=== PATIENT | female | born 1985 | race Caucasian/White ===

== ENCOUNTER 2022-11-28 17:30 | Outpatient (CLI) | payer OTHER | END 2022-11-28 17:45 | disposition home or self-care (01) | LOC: LAB.N 17:30 | PROVIDERS: ATTEND Family Medicine | DX: N97.0 Female infertility associated with anovulation (principal) | CPT/HCPCS: 36415; 84144 ==

== ENCOUNTER 2023-10-14 00:39 | Emergency (ER) | payer OTHER ==
[2023-10-14 00:57] VITALS: O2SAT 98
[2023-10-14 01:18] LABS: BILIRUBIN,URINE NEGATIVE (NEGATIVE); GLUCOSE, URINE (UA) NEGATIVE (NEGATIVE); KETONES,URINE (UA) NEGATIVE (NEGATIVE); LEUKOCYTE ESTERASE, URINE NEGATIVE (NEGATIVE); NITRITE,URINE NEGATIVE (NEGATIVE); OCCULT BLOOD,URINE LARGE (NEGATIVE); PROTEIN,URINE NEGATIVE (NEGATIVE); UROBILINOGEN,URINE 0.2 (NORMAL) E.U./dL (NORMAL)
[2023-10-14 01:20] LABS: BASOPHILS % (AUTO) 0.3 %; EOSINOPHILS # (AUTO) 0.1 10^3/uL (0.0-0.7); EOSINOPHILS % (AUTO) 1.3 %; HCT - HEMATOCRIT 39.3 % (37.0-47.0); HGB - HEMOGLOBIN 12.7 g/dL (12.0-16.0); LYMPHOCYTES # (AUTO) 2.5 10^3/uL (1.5-3.5); LYMPHOCYTES % (AUTO) 37.4 %; MEAN CORPUSCULAR HEMOGLOBIN 29.5 pg (27.0-31.0); MEAN CORPUSCULAR HGB CONC 32.3 g/dL (32.0-36.0); MEAN CORPUSCULAR VOLUME 91.2 fL (81.0-99.0); MEAN PLATELET VOLUME 10.7 fL (7.9-10.8); MONOCYTES # (AUTO) 0.6 10^3/uL (0.0-1.0); MONOCYTES % (AUTO) 9.4 %; NEUTROPHILS # (AUTO) 3.5 10^3/uL (1.5-6.6); NEUTROPHILS % (AUTO) 51.3 %; PLT - PLATELET COUNT 216 10^3/uL (130-450); RED BLOOD COUNT 4.31 10^6/uL (4.20-5.40); RED CELL DISTRIBUTION WIDTH 14.2 % (12.0-15.0); WHITE BLOOD COUNT 6.8 x10^3/uL (4.8-10.8)
[2023-10-14 01:23] LABS: CLARITY,URINE CLEAR (CLEAR)
[2023-10-14 01:37] LABS: BACTERIA,URINE Rare /HPF (None Seen); RBC,URINE 0-5 /HPF (0-5); SQUAMOUS EPITHELIAL CELL,UR FEW Squamous (<= Few); WBC,URINE 0-3 /HPF (0-5)
[2023-10-14 01:42] LABS: ALBUMIN 3.4 g/dL (3.2-5.5); ALBUMIN/GLOBULIN RATIO 1.4 (1.0-2.2); BILIRUBIN,TOTAL 0.2 mg/dL (0.2-1.0); CALCIUM 9.2 mg/dL (8.5-10.3); CREATININE 0.6 mg/dL (0.6-1.3); POTASSIUM 3.8 mmol/L (3.5-4.5); TOTAL PROTEIN 5.8 g/dL (6.4-8.9)
--- NOTE | 2023-10-14 02:24 | ED Physician Documentation ---
History of Present Illness - Stated complaint Stated Complaint: - Chief complaint Chief Complaint: Abd Pain - History obtained from History obtained from: Patient - Additonal information Additional information: The patient comes to the emergency department chief complaint of vaginal bleeding in the setting of an 11-week IVF . She states that she felt as though she needed to urinate and when she went to wipe herself, the toilet paper was saturated with dark red blood with tiny clot strands. The patient states she really did not have much leaking out onto her underwear but the next time she had to urinate, she had another deeply red bloody stain. The patient has been seeing fertility clinic off [address] and so far, the has been going well as far she can tell. She states they did an ultrasound to make sure the was implanted properly. The patient states that she has had 3 other IVF pregnancies that have all miscarried around 8 weeks so this 1 has lasted longer than the others. No other complaints at this time. No fever or chills. No nausea or vomiting. 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: Dilation and currettage, Other HEENT: Rhinoplasty - Present Medications Home Medications: Ambulatory Orders Medication Instructions Recorded Confirmed Enoxaparin [Lovenox] 40 mg SUBQ DAILY 10/14/23 10/14/23 Levothyroxine Sodium [Synthroid] 25 mcg PO 10/14/23 Levothyroxine Sodium [Synthroid] 50 mcg PO 10/14/23 Progesterone, Micronized 200 mg [place] BID 10/14/23 10/14/23 [Prometrium] estradioL [Estradiol (Twice 1 patch TOP 10/14/23 Weekly)] estradioL [Estradiol] 2 mg PO BID 10/14/23 10/14/23 - Allergies Allergies/Adverse Reactions: Allergies Allergy/AdvReac Type Severity Reaction Status Date / Time codeine Allergy Respiratory Verified 10/14/23 07:58 - Social History Does the pt smoke?: No Smoking Status: Never smoker Does the pt drink ETOH?: No Does the pt have substance abuse?: No - Immunizations Immunizations are current?: No - POLST Patient has POLST: No PD ED PE NORMAL - Vitals Vital signs reviewed: Yes - General General: Alert and oriented X 3, No acute distress, Well developed/nourished - HEENT HEENT: Atraumatic, EOMI, Moist mucous membranes - Neck Neck: Supple, no meningeal sign - Cardiac Cardiac: RRR, No murmur - Respiratory Respiratory: No respiratory distress, Clear bilaterally - Abdomen Abdomen: Soft, Non tender, Non distended - Derm Derm: Normal color, Warm and dry, No rash - Extremities Extremities: No deformity - Neuro Neuro: Other (grossly intact) - Psych Psych: Normal mood, Normal affect Results - Vitals Vitals: Oxygen O2 Source Room air - Labs Labs: Laboratory Tests 10/14/23 10/14/23 10/14/23 00:53 01:15 01:15 WBC 6.8 RBC 4.31 Hgb 12.7 Hct 39.3 MCV 91.2 MCH 29.5 MCHC 32.3 RDW 14.2 Plt Count 216 MPV 10.7 Neut # (Auto) 3.5 Lymph # (Auto) 2.5 [place] # (Auto) 0.6 Eos # (Auto) 0.1 Baso # (Auto) 0.0 Absolute Nucleated RBC 0.00 Nucleated RBC % 0.0 Sodium 137 Potassium 3.8 Chloride 108 Carbon Dioxide 24 Anion Gap 5.0 L BUN 15 Creatinine 0.6 Estimated GFR (MDRD) 112 Glucose 91 Calcium 9.2 Total Bilirubin 0.2 AST 10 ALT 9 L Alkaline Phosphatase 44 Total Protein 5.8 L Albumin 3.4 Globulin 2.4 Albumin/Globulin Ratio 1.4 Lipase 23 Beta HCG, Quant 136952.9 Urine Color YELLOW Urine Clarity CLEAR Urine pH 6.0 Ur Specific [place] 1.025 Urine Protein NEGATIVE Urine Glucose (UA) NEGATIVE Urine Ketones NEGATIVE Urine Occult Blood LARGE H Urine Nitrite NEGATIVE Urine Bilirubin NEGATIVE Urine Urobilinogen 0.2 (NORMAL) Ur Leukocyte Esterase NEGATIVE Urine RBC 0-5 Urine WBC 0-3 Ur Squamous Epith Cells FEW Squamous Urine Bacteria Rare Ur Microscopic Review INDICATED Urine Culture Comments NOT INDICATED PD Medical Decision Making - ED course Complexity details: considered differential, d/w patient ED course: I discussed with the patient that unfortunately, we do not have ultrasound available tonight. The patient already has a known intrauterine and so the possibility of ectopic is already a moot point. I did obtain laboratory studies and the patient including CBC, ER abdominal panel, beta-hCG, and urinalysis. Labs were unremarkable. Beta hCG was very high at 199,000. I did make a prolonged attempt to find heart tones with the Doppler but unfortunately was unable to do so. I discussed with the patient that we could keep her in the ER for ultrasound but that it would not happen for another roughly 6 to 7 hours, as the techs do not come until 8:00. I also offered that she could come back for reevaluation in the morning if she was still bleeding. Lastly, she could contact her OB office and they could make a plan. At this point in time, the patient would like to go home. We have discussed the need for close follow-up and the usual indications for return. Departure - Departure Disposition: Home, Self Care Clinical Impression: Threatened affecting intrauterine Condition: Stable Instructions: ED Miscarriage Poss Comments: Your laboratory studies and urinalysis look good tonight. Your hormone levels are still pending, but your OB's office can request these to be sent over from here so that they have them available to compare to prior in future levels. Unfortunately, we do not have ultrasound in-house on weekend nights and they will not be in until around 8:00 this morning. Although there is really nothing to be done about a potential loss in the first trimester, it would be the most helpful test to know what is going on with your baby, and whether your baby is still viable with a heartbeat. We were not able to find the heartbeat via our audio only Doppler, and this could be because the baby is still very tiny and has positioning that is not conducive to picking up the heartbeat, or it could mean that the fetus has ceased to be viable. Please call Dr. Cerna's office first thing in the morning to let her know what is going on. If she does not or cannot set up an ultrasound for you, you may return to the emergency department if you wish to pursue an ultrasound today. Otherwise, please make the next available appointment with Dr. Cerna for follow-up. Forms: PCP List Discharge Date/Time: 10/14/23 02:28
[2023-10-14 02:31] VITALS: BP 115/83
== END 2023-10-14 02:28 | disposition home or self-care (01) ==
LOC: ED 00:39
DX: O20.0 Threatened abortion (principal); Z3A.11 11 weeks gestation of pregnancy
CPT/HCPCS: 36415; 80053; 81001; 81003; 83690; 84702; 85025; 87086; 99284

== ENCOUNTER 2023-10-14 07:51 | Emergency (ER) | payer OTHER ==
[2023-10-14 08:05] VITALS: BP 119/71; O2SAT 97
--- NOTE | 2023-10-14 08:34 | ED Physician Documentation ---
PD HPI FEMALE - Stated complaint Stated Complaint: SPOTTING/CRAMPING - Chief complaint Chief Complaint: Abd Pain - History obtained from History obtained from: Patient - Additional information Additional information: Patient is a 38-year-old female who is approximately 11 weeks presenting for evaluation of lower abdominal cramping and vaginal bleeding starting overnight. Patient is a G4, P0. 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 Therefore she has been on Lovenox for this and the last dose was last night.She is following with Dr. Cerna at [facility] and last had an ultrasound at 9-1/2 weeks where everything looked well. Patient reports that she woke up in the middle of the night having to go to the bathroom and when she wiped she noticed a large amount of dark red blood with some clots and was having some lower abdominal cramping. She states that the bleeding has stopped but she continues to have significant cramping. She did come to the emergency department overnight for evaluation. Labs were obtained. They were unable to obtain heart tones with bedside Doppler. She was directed to either come back to the emergency department today when we have ultrasound available or to make an appointment to be seen by her surgical garment fitter. Blood type is O+. Review of Systems Constitutional: denies: Fever Cardiac: denies: Chest pain / pressure Respiratory: denies: Dyspnea GI: reports: Abdominal Pain. 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: Other : None HEENT: Chronic vision loss Psych: None Musculoskeletal: None Derm: None Other Past Medical History: PCOS - Past Surgical History Past Surgical History: Yes General: EGD /SQL SSIS DEVELOPER: Dilation and currettage, Other HEENT: Rhinoplasty - Present Medications Home Medications: Ambulatory Orders Medication Instructions Recorded Confirmed Enoxaparin [Lovenox] 40 mg SUBQ DAILY 10/14/23 10/14/23 Levothyroxine Sodium [Synthroid] 25 mcg PO 10/14/23 Levothyroxine Sodium [Synthroid] 50 mcg PO 10/14/23 Progesterone, Micronized 200 mg [place] BID 10/14/23 10/14/23 [Prometrium] estradioL [Estradiol (Twice 1 patch TOP 10/14/23 Weekly)] estradioL [Estradiol] 2 mg PO BID 10/14/23 10/14/23 - Allergies Allergies/Adverse Reactions: Allergies Allergy/AdvReac Type Severity Reaction Status Date / Time codeine Allergy Respiratory Verified 10/14/23 07:58 - Social History Does the pt smoke?: No Smoking Status: Never smoker Does the pt drink ETOH?: No Does the pt have substance abuse?: No - Immunizations Immunizations are current?: Yes - POLST Patient has POLST: No PD ED PE NORMAL - General General: Alert and oriented X 3, No acute distress, Well developed/nourished - HEENT HEENT: Atraumatic, Moist mucous membranes, Pharynx benign - Neck Neck: Supple, no meningeal sign - Cardiac Cardiac: RRR - Respiratory Respiratory: No respiratory distress, Clear bilaterally - Abdomen Abdomen: Normal bowel sounds, Soft, Non tender, Non distended - Derm Derm: Warm and dry - Neuro Neuro: Normal speech Results - Vitals Vitals: Vital Signs - 24 hr 10/14/23 07:59 Temperature 36.7 C Heart Rate 91 Respiratory 16 Rate Blood Pressure 119/71 O2 Saturation 97 Oxygen O2 Source Room air PD Medical Decision Making - ED course Complexity details: reviewed results, d/w patient ED course: Pt with 1st trimester , cramping and bleeding today. Pt seen overnight and staff unable to find FHTs. Pt back for U/S this morning. Benign exam. U/S with movement, +cardiac activity and measuring appropriately. Pt aware of need for f/u with OB. Blood type reported as O+. Departure - Departure Disposition: 01 Home, Self Care Clinical Impression: Spotting and cramping affecting , antepartum Condition: Stable Instructions: Bleeding Early Preg Follow-Up: Pricilla Cerna MD [Physician No Access] - Comments: The preliminary report I received from the compressor technician today shows that the baby is active and moving around and measuring appropriately at 11 weeks 1 day with a heart rate of 166 bpm which is good. I would recommend follow-up with your AUTOMATED PROCESS OPERATOR at [facility]. Return to the emergency department with any worsening such as heavy bleeding where you are soaking through a pad an hour for a few hours or with any concerns. Forms: PCP List Discharge Date/Time: 10/14/23 09:57
--- NOTE | 2023-10-14 10:36 | Ultrasound Report ---
PROCEDURE: OB 1st Trimester INDICATIONS: bleeding/cramping/no FHT overnight OUTSIDE/PRIOR DATING DATA: Last menstrual period (LMP): 08/14/2023. (IVF transfer date) LMP-based estimated date of delivery (SHAHIDA): 05/01/2024. First dating scan (date and location): 10/14/2023. Estimated date of delivery (SHAHIDA) from first dating scan: 05/01/2024. TECHNIQUE: Real-time scanning was performed of the fetus and maternal pelvic organs, with image documentation. COMPARISON: None. FINDINGS: Intrauterine gestational sac present. Embryo: pole is seen with crown-rump length of 4.3 cm, consistent with an estimated gestationa l age of 11 weeks 1 day. Heart rate: 166 bpm. Other: No perigestational fluid collection. Measurement variability in dating: +/- 4 weeks by LMP, +/- 7 days by mean sac diameter (use before 6 weeks gestation if crown-rump length not able to be measured), +/- 5 days by crown-rump length (6-12 weeks gestation). Maternal organs: Cervix is closed. Right ovary not visualized. Left ovary is unremarkable. IMPRESSION: Single live intrauterine and size is concordant with clinical dates. Reviewed by: Enoc Gramajo MD on 10/14/2023 10:35 AM PDT Approved by: Enoc Gramajo MD on 10/14/2023 10:35 AM PDT Station ID: [id number]
== END 2023-10-14 09:57 | disposition home or self-care (01) ==
LOC: ED 07:51
DX: O26.851 Spotting complicating pregnancy, first trimester (principal); Z3A.11 11 weeks gestation of pregnancy; O99.891 Other specified diseases and conditions complicating pregnancy; R10.30 Lower abdominal pain, unspecified; O20.0 Threatened abortion
CPT/HCPCS: 36415; 80053; 81001; 81003; 83690; 84702; 85025; 87086; 99284

== ENCOUNTER 2024-03-21 20:25 | Emergency (ER) | payer OTHER ==
--- NOTE | 2024-03-21 20:29 | ED Physician Documentation ---
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 SUPERVISOR: Dilation and currettage, Other HEENT: Rhinoplasty - Present Medications Home Medications: Ambulatory Orders Medication Instructions Recorded Confirmed Enoxaparin [Lovenox] 40 mg SUBQ DAILY 10/14/23 10/14/23 Levothyroxine Sodium [Synthroid] 25 mcg PO 10/14/23 Levothyroxine Sodium [Synthroid] 50 mcg PO 10/14/23 Progesterone, Micronized 200 mg [place] BID 10/14/23 10/14/23 [Prometrium] estradioL [Estradiol (Twice 1 patch TOP 10/14/23 Weekly)] estradioL [Estradiol] 2 mg PO BID 10/14/23 10/14/23 - Allergies Allergies/Adverse Reactions: Allergies Allergy/AdvReac Type Severity Reaction Status Date / Time codeine Allergy Respiratory Verified 03/21/24 20:33 - Social History Does the pt smoke?: No Smoking Status: Never smoker Does the pt drink ETOH?: No Does the pt have substance abuse?: No - Immunizations Immunizations are current?: Yes - POLST Patient has POLST: No Results - Vitals Vitals: Vital Signs - 24 hr 03/21/24 20:33 Temperature 36.5 C Heart Rate 62 Respiratory 24 Rate Blood Pressure 173/97 H O2 Saturation 98 Oxygen O2 Source Room air PD Medical Decision Making - ED course ED course: Note started in error. Nabeel Rodriguez
[2024-03-21 20:55] LABS: BASOPHILS % (AUTO) 0.2 %; EOSINOPHILS # (AUTO) 0.1 10^3/uL (0.0-0.7); EOSINOPHILS % (AUTO) 0.6 %; HCT - HEMATOCRIT 34.7 % (37.0-47.0); HGB - HEMOGLOBIN 11.2 g/dL (12.0-16.0); LYMPHOCYTES # (AUTO) 2.3 10^3/uL (1.5-3.5); MEAN CORPUSCULAR HEMOGLOBIN 29.1 pg (27.0-31.0); MEAN CORPUSCULAR HGB CONC 32.3 g/dL (32.0-36.0); MEAN CORPUSCULAR VOLUME 90.1 fL (81.0-99.0); MEAN PLATELET VOLUME 12.1 fL (7.9-10.8); MONOCYTES # (AUTO) 1.3 10^3/uL (0.0-1.0); MONOCYTES % (AUTO) 10.3 %; NEUTROPHILS # (AUTO) 8.4 10^3/uL (1.5-6.6); NEUTROPHILS % (AUTO) 68.5 %; NRBC ABSOLUTE COUNT (AUTO) 0.03 x10^3/uL; NUCLEATED RED BLOOD CELLS AUTO 0.2 /100WBC; PLT - PLATELET COUNT 146 10^3/uL (130-450); RED BLOOD COUNT 3.85 10^6/uL (4.20-5.40); WHITE BLOOD COUNT 12.3 x10^3/uL (4.8-10.8)
[2024-03-21] MEDS: LABETALOL 20 MG/4 ML SYRINGE IVP STA ×2 (20:56→21:47)
[2024-03-21] MEDS: ONDANSETRON 4 MG/2 ML VIAL IVP STA (21:01)
--- NOTE | 2024-03-21 21:07 | XRAY Report ---
PROCEDURE: Chest 1V INDICATIONS: CHEST PAIN, 35WKS PREG TECHNIQUE: One view of the chest was acquired. COMPARISON: None FINDINGS: Surgical changes and devices: None. Lungs and pleura: No pleural effusions or pneumothorax. Lungs are clear. Mediastinum: Mediastinal contours appear normal. Heart size is normal. Bones and chest wall: No suspicious bony lesions. Overlying soft tissues appear unremarkable. IMPRESSION: No acute cardiopulmonary findings Reviewed by: Rohan Mae MD on 03/21/2024 8:05 PM AKDT Approved by: Rohan Mae MD on 03/21/2024 8:05 PM AKDT Station ID: [id number]
[2024-03-21 21:12] LABS: ALBUMIN 3.3 g/dL (3.2-5.5); ALBUMIN/GLOBULIN RATIO 1.3 (1.0-2.2); BILIRUBIN,TOTAL 0.3 mg/dL (0.2-1.0); CALCIUM 8.9 mg/dL (8.5-10.3); CREATININE 0.6 mg/dL (0.6-1.3); POTASSIUM 4.1 mmol/L (3.5-4.5); TOTAL PROTEIN 5.8 g/dL (6.4-8.9)
--- NOTE | 2024-03-21 21:13 | ED Physician Documentation ---
PD HPI CHEST PAIN - Stated complaint Stated Complaint: CHEST PX/VOMITING - Chief complaint Chief Complaint: Cardiac - History obtained from History obtained from: Patient - Additional information Additional information: 38yo at 35wks gestational age Presents by private vehicle from home for approximately 5 to 6 hours of midepigastric/substernal chest pain. Pain is sharp, does not radiate, reports associated shortness of breath. Pain began suddenly while she was at a family event with her . Patient was just discharged from [facility] for pre eclampsia with IUGR. Patient states that she was discharged from [facility] with instructions for scheduled nonstress tests with hopes that patient could keep fetus for 3 additional weeks to reach term. Patient denies vaginal bleeding, loss of fluids, vaginal pain. Reports chronic lower extremity swelling due to her preeclampsia that is unchanged from her baseline. Normal care at [facility] with Dr. Cerna. Patient states she was in too much pain to make it to [facility] and came to [facility] instead. Review of Systems Constitutional: denies: Fever, Chills Cardiac: reports: Chest pain / pressure. denies: Palpitations, Calf pain Respiratory: reports: Dyspnea. 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 HEENT: Chronic vision loss Psych: None Musculoskeletal: None Derm: None - Past Surgical History Past Surgical History: Yes General: EGD /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 NATURAL 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: Dilation and currettage, Other HEENT: Rhinoplasty - Present Medications Home Medications: Ambulatory Orders Medication Instructions Recorded Confirmed Enoxaparin [Lovenox] 40 mg SUBQ DAILY 10/14/23 10/14/23 Levothyroxine Sodium [Synthroid] 25 mcg PO 10/14/23 Levothyroxine Sodium [Synthroid] 50 mcg PO 10/14/23 Progesterone, Micronized 200 mg [place] BID 10/14/23 10/14/23 [Prometrium] estradioL [Estradiol (Twice 1 patch TOP 10/14/23 Weekly)] estradioL [Estradiol] 2 mg PO BID 10/14/23 10/14/23 - Allergies Allergies/Adverse Reactions: Allergies Allergy/AdvReac Type Severity Reaction Status Date / Time codeine Allergy Respiratory Verified 03/21/24 20:33 - Social History Does the pt smoke?: No Smoking Status: Never smoker Does the pt drink ETOH?: No Does the pt have substance abuse?: No - Immunizations Immunizations are current?: Yes - POLST Patient has POLST: No PD ED PE NORMAL - Vitals Vital signs reviewed: Yes - General General: Alert and oriented X 3, Well developed/nourished, Other (anxious, uncomfortable) - Cardiac Cardiac: RRR, Strong equal pulses - Respiratory Respiratory: No respiratory distress, Clear bilaterally - Abdomen Abdomen: Soft, Non tender, Other (gravid consistent with gestational age) - Derm Derm: Normal color, Warm and dry, No rash - Extremities Extremities: No deformity, No tenderness to palpate, Normal ROM s pain, Other (trace pitting edema to knees) - Neuro Neuro: Alert and oriented X 3, lock and dam operator 2-12 intact, No motor deficit, Normal speech Results - Vitals Vitals: Vital Signs - 24 hr 03/21/24 03/21/24 03/21/24 20:33 21:10 21:17 Temperature 36.5 C Heart Rate 62 72 65 Respiratory 24 22 19 Rate Blood Pressure 173/97 H 160/101 H 152/95 H O2 Saturation 98 98 97 03/21/24 03/21/24 03/21/24 21:30 21:38 21:57 Temperature Heart Rate 66 74 71 Respiratory 20 24 24 Rate Blood Pressure 149/101 H 143/92 H 147/88 H O2 Saturation 99 98 97 03/21/24 03/21/24 22:30 22:43 Temperature 36.8 C Heart Rate 88 91 Respiratory 21 30 H Rate Blood Pressure 152/95 H 150/93 H O2 Saturation 97 97 Oxygen O2 Source Room air - Labs Labs: Laboratory Tests 03/21/24 03/21/24 03/21/24 20:45 20:45 21:24 WBC 12.3 H RBC 3.85 L Hgb 11.2 L Hct 34.7 L MCV 90.1 MCH 29.1 MCHC 32.3 RDW 14.0 Plt Count 146 MPV 12.1 H Neut # (Auto) 8.4 H Lymph # (Auto) 2.3 [place] # (Auto) 1.3 H Eos # (Auto) 0.1 Baso # (Auto) 0.0 Absolute Nucleated RBC 0.03 Nucleated RBC % 0.2 Sodium 138 Potassium 4.1 Chloride 105 Carbon Dioxide 25 Anion Gap 8.0 BUN 19 Creatinine 0.6 Estimated GFR (MDRD) 112 Glucose 86 Calcium 8.9 Total Bilirubin 0.3 AST 172 H ALT 103 H Alkaline Phosphatase 90 Troponin I High Sens 9.8 Total Protein 5.8 L Albumin 3.3 Globulin 2.5 Albumin/Globulin Ratio 1.3 Urine Color YELLOW Urine Clarity CLEAR Urine pH 6.0 Ur Specific [place] >=1.030 H Urine Protein 100 H Urine Glucose (UA) NEGATIVE Urine Ketones NEGATIVE Urine Occult Blood NEGATIVE Urine Nitrite NEGATIVE Urine Bilirubin NEGATIVE Urine Urobilinogen 0.2 (NORMAL) Ur Leukocyte Esterase NEGATIVE Urine RBC 0-5 Urine WBC 0-3 Ur Squamous Epith Cells MOD Squamous H Urine Bacteria Moderate H Ur Microscopic Review INDICATED Urine Culture Comments NOT INDICATED Urine Creatinine 03/21/24 21:24 WBC RBC Hgb Hct MCV MCH MCHC RDW Plt Count MPV Neut # (Auto) Lymph # (Auto) [place] # (Auto) Eos # (Auto) Baso # (Auto) Absolute Nucleated RBC Nucleated RBC % Sodium Potassium Chloride Carbon Dioxide Anion Gap BUN Creatinine Estimated GFR (MDRD) Glucose Calcium Total Bilirubin AST ALT Alkaline Phosphatase Troponin I High Sens Total Protein Albumin Globulin Albumin/Globulin Ratio Urine Color Urine Clarity Urine pH Ur Specific [place] Urine Protein Urine Glucose (UA) Urine Ketones Urine Occult Blood Urine Nitrite Urine Bilirubin Urine Urobilinogen Ur Leukocyte Esterase Urine RBC Urine WBC Ur Squamous Epith Cells Urine Bacteria Ur Microscopic Review Urine Culture Comments Urine Creatinine 83.4 PD Medical Decision Making - ED course Complexity details: reviewed old records, reviewed results, re-evaluated patient, considered differential, d/w patient ED course: Patient presenting with midepigastric chest pain and elevated blood pressures. Patient has had difficulty in managing preeclampsia and was just discharged from [facility] for preeclampsia. 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 IV labetalol ordered for blood pressures. Patient's blood pressure did improve initially with labetalol however it did began to gradually creep up. Patient does have some anxiety, stating "I cannot do this anymore". A small dose of Ativan ordered for anxiolysis. Additional labetalol ordered for blood pressure support. Laboratory work reviewed, platelets 146, AST 172, ALT 103, urine protein positive, urine creatinine 83. Records were reviewed from [facility], on patient's platelets were 166, AST 15, ALT 7, alk phos 104. Discussed case with on-call OB Dr. Paiz, who recommended transfer back to and initiation of magnesium. She stated that the patient could be monitored in the OB section while awaiting transfer. Discussed with patient and her significant other at bedside, they are amenable to transfer. 4g magnesium ordered for infusion. 2029 - Case discussed with Dr. Bradley of OBGYN at [facility] - they unfortunately are at capacity in the NICU and cannot accept a transfer. Transfer center will reach out to other campuses to see if there is space. Discussed with Dr. Paiz, unfortunately since we do not have a NICU we cannot deliver the patient and she must be transferred. We will continue to call around to facilities wiht NICU capabilities. Patient accepted by Dr. Jarvis at [facility] contacted for transport. 0000 [facility] arrived to transport patient to higher level of care - Critical Care Time(min): 46 Time Includes: Direct patient care, Review records, Reassess patient, Document care, Coordinate care, Medical consult, Family consult for tx dec, See progress note Data interpretation: Labs, Pulse ox, Prior EKG, Cardiac output Procedures included in critical care time: Peripheral IV Departure - Departure Disposition: 02 Transfer Acute Care Hosp Clinical Impression: Pre-eclampsia, severe Qualifiers: Trimester: third trimester Qualified Code(s): O14.13 - Severe pre-eclampsia, third trimester Condition: Serious
[2024-03-21 21:14] LABS: TROPONIN I HIGH SENSITIVITY 9.8 ng/L (2.3-14.8)
[2024-03-21 21:33] LABS: BILIRUBIN,URINE NEGATIVE (NEGATIVE); GLUCOSE, URINE (UA) NEGATIVE (NEGATIVE); KETONES,URINE (UA) NEGATIVE (NEGATIVE); LEUKOCYTE ESTERASE, URINE NEGATIVE (NEGATIVE); NITRITE,URINE NEGATIVE (NEGATIVE); OCCULT BLOOD,URINE NEGATIVE (NEGATIVE); PROTEIN,URINE 100 mg/dL (NEGATIVE); UROBILINOGEN,URINE 0.2 (NORMAL) E.U./dL (NORMAL)
[2024-03-21 21:34] LABS: CLARITY,URINE CLEAR (CLEAR)
[2024-03-21 21:46] LABS: BACTERIA,URINE Moderate /HPF (None Seen); RBC,URINE 0-5 /HPF (0-5); SQUAMOUS EPITHELIAL CELL,UR MOD Squamous (<= Few); WBC,URINE 0-3 /HPF (0-5)
[2024-03-21] MEDS: SODIUM CHLORIDE 0.9% 1,000 ML IV STA (21:52)
[2024-03-21] MEDS: LORazepam 2 MG/ML VIAL IVP STA (21:55)
[2024-03-21] MEDS: MAG HYDROX/AL HYDROX/SIMETH 30 ML UDC PO STA (21:57)
[2024-03-21] MEDS: LIDOCAINE VISCOUS 2% 15 ML UDC MM STA (21:58)
[2024-03-21 22:02] VITALS: O2SAT 97
[2024-03-21] MEDS ORDERED: MAGNESIUM SULFATE IN WATER 20 GM/500 ML IV.SOLN IV ONE (22:13)
[2024-03-21] MEDS: MAGNESIUM SULFATE 4 GRAM 4 GM/50 ML BAG IV ONE (22:16)
[2024-03-21 22:53] VITALS: BP 150/93
[2024-03-21] MEDS ORDERED: hydrALAZINE INJ 20 MG/ML VIAL IVP PRN ×2 (23:02)
[2024-03-21] MEDS ORDERED: NIFEdipine 10 MG CAPSULE PO PRN (23:02)
[2024-03-21] MEDS ORDERED: SODIUM CHLORIDE FLUSH 0.9% 10 ML SYRINGE IVP PRN (23:02)
[2024-03-21] MEDS ORDERED: LABETALOL 20 MG/4 ML SYRINGE IVP PRN ×3 (23:02)
[2024-03-21] MEDS: MAGNESIUM SULFATE IN WATER 20 GM/500 ML IV.SOLN IV SCH (23:10)
[2024-03-21] MEDS ORDERED: LACTATED RINGERS 1,000 ML ONE (23:44)
[2024-03-21] MEDS ORDERED: SODIUM CHLORIDE FLUSH 0.9% 10 ML SYRINGE IVP SCH (23:45)
[2024-03-21] MEDS: LABETALOL 100 MG TABLET PO ONE (23:53)
--- NOTE | 2024-03-22 00:24 | PROVIDER PROGRESS NOTE ---
- HPI Chief Complaint: Other (Transfered to L&D from the ED for monitoring/BP monitoring pending transfer to outside facility for preeclampsia with severe features) Current : Vital Signs Temperature 97.7 F 03/21/24 20:33 Heart Rate 62 03/21/24 20:33 Respiratory Rate 24 03/21/24 20:33 Blood Pressure 173/97 H 03/21/24 20:33 O2 Saturation 98 03/21/24 20:33 Temperature 98.2 F 03/21/24 22:30 Heart Rate 91 03/21/24 22:43 Respiratory Rate 30 H 03/21/24 22:43 Blood Pressure 150/93 H 03/21/24 22:43 O2 Saturation 97 03/21/24 22:43 If not protocol: Oxygen Flow, liters/minute - Plan Plan: S: Rose Marie Valenzuela is a 38 yo at 34w1d with recently diagnosed preeclampsia without severe features and FGR who presented to the ED this evening with RUQ/epigastic/chest pain and was found to have severe range BPs requiring treatment with IV labetalol 20mg x 2 as well as elevated LFTs consistent with progression to preeclampsia with severe features. She had an EKG and neg troponin in the ED. The ED physician initiated the transfer process to for further care and Corry was transferred to L&D for further monitoring and BP evaluation pending transfer. Corry was discharged from yesterday after 2 day admission for new dx of preeclampsia without severe features and FGR, received betamethasone x 2 doses on 03/18 and 03/19. Corry and her partner report epigastric/chest pain that started around 11AM yesterday morning. She then began with N/V around 9pm after presenting to ED. She denies MERIDA, vision changes, ctx, LOF, VB. Reports movement has been less than usual today, but present. She last ate around 5pm, chicken nuggets and italian fries. She has not taken her lovenox today, usually takes in the evenings. She also has not had her evening dose of labetalol. O: Gen: very uncomfortable appearing, sitting up in bed CV: RRR, no murmurs appreciated Resp: CTAB, no crackles, no increased work of breathing Abd: + epigastric and RUQ tenderness, no rebound/guarding Ext: 1+ LE DTRs, no clonus Limited bedside US performed: breech presentation FHTs: 150s bpm baseline, minimal variability, one episodic deceleration, no accelerations Winfred: none FHTs Cat 2 Labs: CBC, CMP reviewed, notable for plt 146, AST 172, ALT 103 A/P: 38 yo at 34w1d with preeclampsia with severe features, concern for developing HELLP. - Transfer to [facility] initiated by ED - I recommended transfer by helicopter given monitoring with minimal variability and severity of illness for Rose Marie for expedited treatment/delivery - Magnesium suflate started for seizure prophylaxis, given evening dose of labetalol 200mg - I called and updated Dr. Jarvis at [facility] on patient's status Violetta Howell MD
[2024-03-22] MEDS ORDERED: fentaNYL 2,500 MCG/50 ML VIAL IV SCH (01:00)
[2024-03-22] MEDS ORDERED: fentaNYL 100 MCG/2 ML VIAL IVP ONE (01:00)
--- NOTE | 2024-03-24 08:31 | PROCEDURE REPORT ---
- HPI Diagnosis/Indication for NST: Other (Preeclampsia with severe features) Current EDU 05/01/24 Gestation 34 Weeks and 2 Days 3 Para 0 Vital Signs Temperature 97.7 F 03/21/24 20:33 Heart Rate 62 03/21/24 20:33 Respiratory Rate 24 03/21/24 20:33 Blood Pressure 173/97 H 03/21/24 20:33 O2 Saturation 98 03/21/24 20:33 Temperature 98.2 F 03/21/24 22:30 Heart Rate 91 03/21/24 22:43 Respiratory Rate 30 H 03/21/24 22:43 Blood Pressure 150/93 H 03/21/24 22:43 O2 Saturation 97 03/21/24 22:43 If not protocol: Oxygen Flow, liters/minute - NST Procedure NST Procedure Start Date 03/21/24 Start Time 20:42 Stop Time 00:32 Vibroacoustic Stimulation Used No Patient States Movement No: difficult due to pain - Results and Plan Findings/Impression: Nonreactive, Category 2 with minimal variability, 1 episodic deceleration
== END 2024-03-22 00:36 | disposition short-term general hospital (02) ==
LOC: ED 20:25 → FBP 22:56 → UNDOADMIN 22:56 → UNDODISIN 03-22 00:36 → ED 03-22 00:36
DX: O14.13 Severe pre-eclampsia, third trimester (principal); O99.343 Other mental disorders complicating pregnancy, third trimester; Z3A.35 35 weeks gestation of pregnancy
CPT/HCPCS: 36415; 51702; 59025; 71045; 80053; 81001; 82570; 84484; 85025; 93005; 96365; 96375; 96376; 99291; A9270; J2060; J7120; 81003; 87086; J3475